=== PATIENT | female | born 1960 | race Caucasian/White ===

== ENCOUNTER → 2017-08-16 | Outpatient (CLI) | payer OTHER | LOC: FIMAGING 12:15 | PROVIDERS: ATTEND Internal Medicine | DX: Z12.31 Encounter for screening mammogram for malignant neoplasm of breast (principal) | CPT/HCPCS: G0202 ==

== ENCOUNTER 2017-11-27 12:20 | Day surgery (SDC) | payer OTHER ==
[2017-11-27] MEDS ORDERED: LR 1,000 ML IV ONE (12:36)
[2017-11-27] MEDS ORDERED: NALOXONE HCL 0.4 MG/ML INJ ONE (13:02)
[2017-11-27] MEDS ORDERED: FLUMAZENIL 0.5 MG/5 ML MDV IVP ONE (13:02)
[2017-11-27] MEDS ORDERED: MIDAZOLAM 2 MG/2 ML VIAL ONE (13:02)
[2017-11-27] MEDS ORDERED: fentaNYL 100 MCG/2 ML INJ ONE (13:04)
[2017-11-27] MEDS ORDERED: EPINEPHrine 1 MG/10 ML SYR IVP ONE (13:04)
--- NOTE | 2017-11-27 13:22 | PDGENHP ---
History & Physical Chief Complaint: family h/o colon cancer History of Present Illness: no c/o Pertinent Past, Social, Family History: h/o appendicitis with adhesions. No other active medical problems. Relevant Physical Exam: Lungs CTA. Cor S1S2 rrr. Cardiorespiratory Assessment: See above
--- NOTE | 2017-11-27 13:23 | PDPROPOC ---
Sedation Plan of Care Sedation Plan of Care: vital signs stable, mental status noted, patient educated of risks, benefits, alternatives, patient can tolerate sedation ASA Classification: ASA 1 Planned drugs: fentanyl, midazolam Mallampati Score: Class 1 Mallampati Reference Image: Patient passed 3-3-2 rule?: Yes
--- NOTE | 2017-11-27 13:36 | POSTOPPROG ---
Post Op Note Date of Operation: 11/27/17 Surgeon: Bogdan Pierce Anesthesia: IV Sedation Pre-op Diagnosis: family h/o colon cancer Post-op Diagnosis: diverticulosis Indication: same Procedure: cln Findings: same Inf/Abcess present in the surg proc area at time of surgery?: No EBL: Minimal
--- NOTE | 2017-11-27 13:41 | GIREPORT ---
[facility] - Endoscopy Department Patient Name: Lynda Orellana Procedure Date: 11/27/2017 12:57 PM Patient Type: Outpatient Attending MD/ ER Physician: Bogdan Pierce MD Procedure: Colonoscopy Indications: Colon cancer screening in patient at increased risk: Colorectal cancer in mother Providers: Bogdan Pierce MD Medicines: Fentanyl 100 micrograms IV, Midazolam 5 mg IV Complications: No immediate complications. Description of Procedure: After obtaining informed consent, the scope was passed under direct vis ion. Throughout the procedure, the patient's blood pressure, pulse, and oxyg en saturations were monitored continuously. The Colonoscope with irrigatio n channel was introduced through the anus and advanced to the terminal il eum. The colonoscopy was performed with ease. The patient tolerated the proc edure well. The quality of the bowel preparation was excellent. Findings: A few small-mouthed diverticula were found in the sigmoid colon. The exam was otherwise without abnormality. The retroflexed view of the distal rectum and anal verge was normal and showed no anal or rectal abnormalities. Estimated Blood Loss: Estimated blood loss: none. Post Op Diagnosis: - Diverticulosis in the sigmoid colon. - The examination was otherwise normal. - The distal rectum and anal verge are normal on retroflexion view. - No specimens collected. Recommendation: - Discharge patient to home. - Resume previous diet. - Continue present medications. - Repeat colonoscopy in 5 years for surveillance. Attending Participation: I personally performed the entire procedure. Bogdan Pierce MD Bogdan Pierce MD 11/27/2017 1:41:28 PM This report has been signed electronicallyRobsalinas Pierce MD Number of Addenda: 0 Note Initiated On: 11/27/2017 12:57 PM Total Procedure Duration Time 0 hours 5 minutes 7 seconds [email or web address]
[2017-11-27 13:50] VITALS: PULSE 64; TEMP 97.5
[2017-11-27 14:04] VITALS: BP 101/43; RESP 11; O2SAT 92
== END 2017-11-27 14:22 | disposition home or self-care (01) ==
LOC: FSGY 12:20
PROVIDERS: ATTEND Internal Medicine Gastroenterology
PROC: 0DJD8ZZ Inspection of Lower Intestinal Tract, Via Natural or Artificial Opening Endoscopic (ICD-10-PCS; principal; 2017-11-27 13:30)
DX: Z12.11 Encounter for screening for malignant neoplasm of colon (principal); Z80.0 Family history of malignant neoplasm of digestive organs; K57.30 Diverticulosis of large intestine without perforation or abscess without bleeding
CPT/HCPCS: J2250; J2310; J3010

== ENCOUNTER → 2018-09-30 | Outpatient (CLI) | payer OTHER | LOC: FIMAGING 15:55 | PROVIDERS: ATTEND Internal Medicine | DX: Z12.31 Encounter for screening mammogram for malignant neoplasm of breast (principal) ==